=== PATIENT | female | born 1950 | race Caucasian/White ===

== ENCOUNTER 2017-08-06 18:34 | Emergency (ER) | payer MEDICARE, BC ==
[~2017-08-06] VITALS: Ht 162.6 cm; Wt 75.3 kg
[2017-08-06] MEDS ORDERED: ZOVIRAX400 MG PO (18:55)
[2017-08-06] MEDS ORDERED: REQUIP1 MG PO (18:56)
[2017-08-06] MEDS ORDERED: LIPITOR20 MG PO (18:56)
[2017-08-06] MEDS ORDERED: NORVASC5 MG PO (18:57)
== END 2017-08-06 23:05 | disposition home or self-care (01) ==
LOC: ED 18:34
DX: R31.9 Hematuria, unspecified (principal); E78.5 Hyperlipidemia, unspecified; I10 Essential (primary) hypertension; Z90.710 Acquired absence of both cervix and uterus; Z88.8 Allergy status to other drugs, medicaments and biological substances; Z79.899 Other long term (current) drug therapy
CPT/HCPCS: 74177; 74178; 80053; 81001; 85025; 85610; 85730; 99284; Q9967